=== PATIENT | male | born 1960 ===

== ENCOUNTER 2016-10-30 23:06 | Emergency (ER) | payer SELFPAY ==
[2016-10-30 23:37] VITALS: BP 145/88; PULSE 72; RESP 17; TEMP 98.7; O2SAT 98
[2016-10-31] MEDS ORDERED: Oxycodone/Acetaminophen 5/325 mg Tab PO ONE (00:36)
--- NOTE | 2016-10-31 00:43 | ED PDOC ---
Lower Extremity Pain/Injury Time Seen by Provider: 10/31/16 00:06 Chief Complaint (Nursing): Lower Extremity Problem/Injury Chief Complaint (Provider): right knee pain and swelling History Per: Patient History/Exam Limitations: no limitations Onset/Duration Of Symptoms: Days Current Symptoms Are (Timing): Still Present Additional Complaint(s): 56yo male with no PMHx presents to the ED with c/o right knee pain and swelling x 2 months to anterior aspect of knee. Patient taking Motrin at home with minimal relief. Denies trauma, allergies, or any other medical complaints. Past Medical History Reviewed: Historical Data, Nursing Documentation, Vital Signs Vital Signs: Last Vital Signs Temp 98.7 F 10/30/16 23:33 Pulse 72 10/30/16 23:33 Resp 17 10/30/16 23:33 BP 145/88 10/30/16 23:33 Pulse Ox 98 10/30/16 23:33 - Medical History PMH: No Chronic Diseases - Surgical History Surgical History: No Surg Hx - Family History Family History: States: No Known Family Hx - Social History Current smoker - smoking cessation education provided: No Alcohol: None Drugs: Denies - Home Medications Home Medications: Ambulatory Orders Medication Instructions Recorded Ibuprofen [Motrin] 600 mg PO Q6H PRN #10 tab 10/31/16 - Allergies Allergies/Adverse Reactions: Allergies Allergy/AdvReac Type Severity Reaction Status Date / Time No Known Allergies Allergy Verified 10/30/16 23:37 Review of Systems ROS Statement: Except As Marked, All Systems Reviewed And Found Negative Musculoskeletal: Positive for: Other (right knee pain and swelling, no trauma ) Physical Exam - Reviewed Nursing Documentation Reviewed: Yes Vital Signs Reviewed: Yes - Physical Exam Appears: Positive for: Well, No Acute Distress Head Exam: Positive for: ATRAUMATIC, NORMAL INSPECTION, NORMOCEPHALIC Skin: Positive for: Normal Color, Warm, Dry Eye Exam: Positive for: Normal appearance Neck: Positive for: Normal, Painless ROM, Supple Cardiovascular/Chest: Positive for: Regular Rate, Rhythm. Negative for: Tachycardia Respiratory: Positive for: Normal Breath Sounds. Negative for: Respiratory Distress Extremity: Positive for: Normal ROM, Capillary Refill (less than 2 seconds ), Swelling (right knee swelling suprapatellar area), Other (good pulses, no cellulitis, normal color, skin warm, neurovascularly intact ). Negative for: Tenderness, Deformity Neurologic/Psych: Positive for: Alert, Oriented - ECG O2 Sat by Pulse Oximetry: 98 Pulse Ox Interpretation: Normal (RA) Medical Decision Making Medical Decision Makin: Impression: right knee pain and swelling Plan: XR right knee Percocet 1 tab PO reassess Explained to patient and daughter if XRs are negative they will have to f/u w/ orthopedist for outpatient MRI. 0155: XR is negative for fracture. Referred to orthopedist for MRI. Instructed to return to the ED with any worsening or concerning symptoms. CHRISTIN wrap applied prior to d/c. Scribe Attestation: Documented by Mara Estrada acting as a scribe for Ronda Scott MD. Provider Scribe Attestation: All medical record entries made by the Scribe were at my direction and personally dictated by me. I have reviewed the chart and agree that the record accurately reflects my personal performance of the history, physical exam, medical decision making, and the department course for this patient. I have also personally directed, reviewed, and agree with the discharge instructions and disposition. Disposition - Clinical Impression Clinical Impression: Knee swelling - Patient ED Disposition Is Patient to be Admitted: No Counseled Patient/Family Regarding: Studies Performed, Diagnosis, Need For Followup - Disposition [facility]errals: [facility]Outside] [facility] [Outside] Artie Connelly III, MD [Staff Provider] - Disposition: Routine/Home Disposition Time: 01:55 Condition: IMPROVED Additional Instructions: follow up with orthopedics doctor for further testing and MRI knee return to the ED with any worsening or concerning symptoms. Prescriptions: Ibuprofen [Motrin] 600 mg PO Q6H PRN #10 tab PRN Reason: Pain, Moderate (4-7) Instructions: Swollen Knee Joint (ED), Knee Pain (ED), Swollen Joint (ED) Print Language: BELGIAN
--- NOTE | 2016-10-31 12:19 | RAD ---
PROCEDURE: Right knee dated 10/31/2016 HISTORY: atraumatic knee pain COMPARISON: None. FINDINGS: BONES: No evidence of acute displaced fracture nor dislocation. The osseous structures appear intact. Small lucency along the subchondral surface lateral tibial plateau may represent shield of JOINTS: Mild tricompartmental degenerative osteoarthritis. . There appears be some minor mid medial joint space narrowing with small marginal medial and tiny lateral osteophyte formation. Spurring of the medial tibial spine. Small posterior patellar osteophytes with small anterior patella enthesophyte formation JOINT EFFUSION: Small suprapatellar joint effusion. OTHER FINDINGS: None. IMPRESSION: No evidence of acute displaced fracture nor dislocation. Mild occur tricompartmental DJD with small suprapatellar joint effusion. See above for additional findings and details. . .
== END 2016-10-31 02:43 | disposition home or self-care (01) ==
LOC: H.ER 23:06
DX: M25.561 Pain in right knee (principal); M17.9 Osteoarthritis of knee, unspecified

== ENCOUNTER 2017-11-25 22:31 | Emergency (ER) | payer SELFPAY ==
[2017-11-25 22:41] VITALS: BP 170/80; PULSE 82; RESP 16; TEMP 99.4; O2SAT 98
--- NOTE | 2017-11-25 22:52 | ED PDOC ---
HPI: Male Pain Time Seen by Provider: 11/25/17 22:51 Chief Complaint (Nursing): Male Genitourinary Chief Complaint (Provider): scrotal swelling History Per: Patient (57 y/o male with 3 days of right sided scrotal swelling. Denies any dysuria/hematuria/fevers/chills. Denies abdominal pain. Denies any previous swelling in past.) Past Medical History Reviewed: Historical Data, Nursing Documentation, Vital Signs Vital Signs: Last Vital Signs Temp 99.4 F 11/25/17 22:38 Pulse 82 11/25/17 22:38 Resp 16 11/25/17 22:38 BP 170/80 H 11/25/17 22:38 Pulse Ox 98 11/25/17 22:38 - Family History Family History: States: No Known Family Hx - Home Medications Home Medications: Ambulatory Orders Medication Instructions Recorded Ibuprofen [Motrin] 600 mg PO Q6H PRN #10 tab 10/31/16 Levofloxacin [Levaquin] 500 mg PO DAILY #9 tablet 11/26/17 Naproxen 375 mg PO Q8 PRN #15 tablet 11/26/17 - Allergies Allergies/Adverse Reactions: Allergies Allergy/AdvReac Type Severity Reaction Status Date / Time No Known Allergies Allergy Verified 11/25/17 22:38 Review of Systems ROS Statement: Except As Marked, All Systems Reviewed And Found Negative Physical Exam - Reviewed Nursing Documentation Reviewed: Yes Vital Signs Reviewed: Yes - Physical Exam Appears: Positive for: Well, Non-toxic, No Acute Distress Head Exam: Positive for: ATRAUMATIC, NORMAL INSPECTION, NORMOCEPHALIC Skin: Positive for: Normal Color, Warm, DRY Eye Exam: Positive for: EOMI, Normal appearance, PERRL ENT: Positive for: Normal ENT Inspection Neck: Positive for: Normal, Painless ROM Cardiovascular/Chest: Positive for: Regular Rate, Rhythm Respiratory: Positive for: CNT, Normal Breath Sounds Gastrointestinal/Abdominal: Positive for: Normal Exam, Soft Back: Positive for: Normal Inspection Extremity: Positive for: Normal ROM Neurologic/Psych: Positive for: Alert, Oriented - Laboratory Results Result Diagrams: 11/25/17 23:29 11/25/17 23:29 - ECG O2 Sat by Pulse Oximetry: 98 - Progress ED Course And Treament: us scrotal FINDINGS: Right testicle: No mass. No torsion. Left testicle: No mass. No torsion. Epididymides: Enlarged, heterogeneous, hypervascular RIGHT epididymis. Scrotum: Moderate right hydrocele. Small left hydrocele. IMPRESSION: 1. Findings suggestive of RIGHT epididymitis. 2. Incidental/non-acute findings are described above. Thank you for allowing us to participate in the care of your patient. Dictated and Authenticated by: Rodo Parry MD LEVAQUIN 500 MG X 1 DOSE Disposition - Clinical Impression Clinical Impression: Epididymitis - Patient ED Disposition Is Patient to be Admitted: No - Disposition Referrals: Marcus Corona MD [Medical Doctor] - Disposition: Routine/Home Disposition Time: 01:17 Condition: FAIR Prescriptions: Levofloxacin [Levaquin] 500 mg PO DAILY #9 tablet Naproxen 375 mg PO Q8 PRN #15 tablet PRN Reason: Pain, Moderate (4-7) Instructions: Epididymitis (DC) Forms: [employer] ED School/Work Excuse
[2017-11-25 23:21] LABS: URINE BILIRUBIN NEGATIVE (NEGATIVE); URINE BLOOD MODERATE (NEGATIVE); URINE CLARITY CLEAR (Clear); URINE COLOR YELLOW (YELLOW); URINE GLUCOSE (UA) NEG (Normal); URINE HYALINE CAST 0-2 /hpf (0-2); URINE LEUKOCYTE ESTERASE NEG Leu/uL (Negative); URINE PROTEIN NEGATIVE (NEGATIVE); URINE UROBILINOGEN 0.2-1.0 mg/dL (0.2-1.0)
--- NOTE | 2017-11-25 23:34 | US ---
EXAM: US Scrotum CLINICAL HISTORY: 57 years old, male; Signs and symptoms; Swelling, testicles or scrotum; Additional info: Scrotal swelling TECHNIQUE: Real-time ultrasound of the scrotum with color Doppler and image documentation. COMPARISON: No relevant prior studies available. FINDINGS: Right testicle: No mass. No torsion. Left testicle: No mass. No torsion. Epididymides: Enlarged, heterogeneous, hypervascular RIGHT epididymis. Scrotum: Moderate right hydrocele. Small left hydrocele. IMPRESSION: 1. Findings suggestive of RIGHT epididymitis. 2. Incidental/non-acute findings are described above.
[2017-11-25 23:44] LABS: BASO # 0.1 K/uL (0.0-0.2); BASO % 0.6 % (0.0-2.0); EOS # 0.1 K/uL (0.0-0.7); EOS % 1.3 % (0.0-4.0); LYMPH % 20.4 % (20.0-40.0); MEAN CELL VOLUME 93.8 fl (80.0-94.0); MEAN CORPUSCULAR HEMOGLOBIN 32.1 pg (27.0-31.0); MEAN CORPUSCULAR HGB CONC 34.3 g/dL (33.0-37.0); MEAN PLATELET VOLUME 8.5 fl (7.2-11.7); MONO # 1.2 K/uL (0.0-0.8); MONO % 12.1 % (0.0-10.0); NEUT # 6.5 K/uL (1.8-7.0); NEUT % 65.6 % (50.0-75.0); RBC 4.35 Mil/uL (4.40-5.90); RED CELL DISTRIBUTION WIDTH 13.6 % (11.5-14.5); WHITE BLOOD COUNT 9.9 K/uL (4.8-10.8)
[2017-11-25 23:51] LABS: BLOOD UREA NITROGEN 14 mg/dl (9-20); CALCIUM 9.1 mg/dL (8.4-10.2); GFR AFRICAN-AMERICAN > 60; GFR NON-AFRICAN AMERICAN > 60
[2017-11-26] MEDS ORDERED: Potassium Chloride 20 mEq ER Tab PO ONE ×2 (01:10→01:42)
[2017-11-26] MEDS ORDERED: levoFLOXacin 500 MG TAB PO STA (01:13)
== END 2017-11-26 01:52 | disposition home or self-care (01) ==
LOC: H.ER 22:31
DX: N45.1 Epididymitis (principal)